=== PATIENT | female | born 1985 | race Two or more races ===

== ENCOUNTER 2016-08-23 16:09 | Emergency (ER) | payer OTHER ==
[~2016-08-23] VITALS: Ht 167.6 cm; Wt 59.0 kg
[~2016-08-23 16:09] MED LIST: IBUPROFEN600 MG ORAL
[2016-08-23 16:20] VITALS: BP 95/65
--- NOTE | 2016-08-23 16:34 | Emergency Room Report ---
History of Present Illness General Chief Complaint: Abdominal Pain Source: Patient Present Illness HPI Patient presents with complaints of fairly diffuse abdominal pain Started last night patient took a Cipro for consideration of possible UTI Pain to subside with Motrin last night however as the pain continued she was concerning came to the ER Pain is diffuse and started in the epigastric bilateral going down to the bilateral lower abdomen and suprapubic area Denies any diarrhea or vomiting denies any fevers or chills Allergies: Coded Allergies: NO KNOWN ALLERGIES (Unverified Allergy, Unknown, 03/23/15) Patient History Past Medical History: see triage record Pertinent Family History: none Last Menstrual Period: 07/31/16 Now: No Reviewed Nursing Documentation: PMH: Agreed, PSxH: Agreed Nursing Documentation-PMH Past Medical History: No Stated History Hx Hypertension: No Hx Diabetes: No Review of Systems All Other Systems: negative except mentioned in HPI Physical Exam Vital Signs Date Time Temp Pulse Resp B/P Pulse Ox O2 Delivery O2 Flow Rate FiO2 08/23/16 16:18 97.3 75 18 95/65 97 Room Air Sp02 EP Interpretation: reviewed, normal General Appearance: well appearing, no apparent distress Head: normocephalic, atraumatic Eyes: bilateral eye EOMI, bilateral eye PERRL ENT: hearing grossly normal, normal pharynx, TMs + canals normal, uvula midline Neck: full range of motion, supple, no meningismus, no bony tend Respiratory: lungs clear, normal breath sounds, no rhonchi, no respiratory distress, no retraction, no accessory muscle use Cardiovascular #1: normal peripheral pulses, regular rate, rhythm, no edema, no gallop, no JVD, no murmur Gastrointestinal: normal bowel sounds, non tender, soft, no mass, no organomegaly, non-distended, no guarding, no hernia, no pulsatile mass, no rebound Genitourinary: no CVA tenderness Musculoskeletal: normal inspection Neurologic: oriented x3, responsive, purchasing expeditor III-XII nml as tested, motor strength/ tone normal, sensory intact Psychiatric: mood/affect normal Skin: normal color, no rash, warm/dry, palpation normal Lymphatic: normal inspection, no adenopathy Medical Decision Making Diagnostic Impression: Primary Impression: Ovarian cyst Additional Impression: Abdominal pain ER Course With the patient's history and examination, multiple differentials considered, including but not limited to , ectopic , ovarian torsion, gastritis, cholecystitis, pancreatitis, appendicitis Given the patient's concerns CAT scan imaging was obtained It does show evidence of tendon a 4 cm cyst left adnexa Also 1 hemorrhagic Appendix was normal Patient has done well and otherwise has stable for close outpatient followup Labs Test 08/23/16 16:40 White Blood Count 7.8 K/UL (4.8-10.8) Red Blood Count 4.24 M/UL (4.20-5.40) Hemoglobin 12.5 G/DL (12.0-16.0) Hematocrit 37.1 % (37.0-47.0) Mean Corpuscular Volume 88 FL (80-99) Mean Corpuscular Hemoglobin 29.4 PG (27.0-31.0) Mean Corpuscular Hemoglobin Concent 33.6 G/DL (32.0-36.0) Red Cell Distribution Width 11.1 % (11.6-14.8) Platelet Count 160 K/UL (150-450) Mean Platelet Volume 13.4 FL (6.5-10.1) Neutrophils (%) (Auto) 53.4 % (45.0-75.0) Lymphocytes (%) (Auto) 40.0 % (20.0-45.0) Monocytes (%) (Auto) 4.3 % (1.0-10.0) Eosinophils (%) (Auto) 1.1 % (0.0-3.0) Basophils (%) (Auto) 1.2 % (0.0-2.0) Urine Color Yellow Urine Appearance Clear Urine pH 8 (4.5-8.0) Urine Specific [place] 1.010 (1.005-1.035) Urine Protein Negative (NEGATIVE) Urine Glucose (UA) Negative (NEGATIVE) Urine Ketones Negative (NEGATIVE) Urine Occult Blood Negative (NEGATIVE) Urine Nitrite Negative (NEGATIVE) Urine Bilirubin Negative (NEGATIVE) Urine Urobilinogen Normal MG/DL (0.0-1.0) Urine Leukocyte Esterase 3+ (NEGATIVE) Urine RBC 2-4 /HPF (0 - 2) Urine WBC 5-10 /HPF (0 - 2) Urine Squamous Epithelial Cells Few /LPF (NONE/OCC) Urine Bacteria Moderate /HPF (NONE) Urine HCG, Qualitative Negative Sodium Level 140 mEQ/L (135-145) Potassium Level 3.9 mEQ/L (3.4-4.9) Chloride Level 101 mEQ/L (98-107) Carbon Dioxide Level 25 mEQ/L (20-30) Anion Gap 14 (5-15) Blood Urea Nitrogen 13 mg/dL (7-23) Creatinine 0.8 mg/dL (0.5-0.9) Estimat Glomerular Filtration Rate > 60 mL/min (>60) Glucose Level 94 mg/dL (74-106) Calcium Level 8.5 mg/dL (8.6-10.2) Total Bilirubin 0.6 mg/dL (0.0-1.2) Aspartate Amino Transf (AST/SGOT) 16 U/L (5-40) Alanine Aminotransferase (ALT/SGPT) 13 U/L (3-33) Alkaline Phosphatase 41 U/L (35-104) Total Protein 6.7 g/dL (6.6-8.7) Albumin 4.1 g/dL (3.5-5.2) Globulin 2.6 g/dL Albumin/Globulin Ratio 1.5 (1.0-2.7) Lipase 41 U/L (< 60) CT/MRI/US Diagnostic Results CT/MRI/US Diagnostic Results : Impression CT abdomen pelvisImpression: 2 left ovarian cysts. Presence of internal high attenuation suggests these are hemorrhagic. Small amount free pelvic fluid. Relatively high attenuation of such also suggests hemorrhagic pelvic fluid related to leakage of the above No other acute abnormality Subcentimeter low-attenuation right lobe liver lesion, too small to characterize , most likely benign simple or bile hamartomas. No further followup needed Last Vital Signs Date Time Temp Pulse Resp B/P Pulse Ox O2 Delivery O2 Flow Rate FiO2 08/23/16 16:18 97.3 75 18 95/65 97 Room Air Status: improved Disposition: HOME, SELF-CARE Condition: Improved Scripts Nitrofurantoin Monohyd/M-Cryst* (MACROBID 100 MG*) 100 Mg Capsule 100 MG ORAL EVERY 12 HOURS for 5 Days, CAP Prov: KRISSY [email or web address] 08/23/16 Ibuprofen* (MOTRIN*) 600 Mg Tablet 600 MG ORAL Q8H Y for For Pain, #20 TAB 0 Refills Prov: KRISSY [email or web address] 08/23/16 Additional Instructions: Patient is provided with the discharge instructions notified to follow up with primary doctor in the next 2-3 days otherwise return to the er with any worsening symptoms. Please note that this report is being documented using DRAG[employer] technology. This can lead to erroneous entry secondary to incorrect interpretation by the dictating instrument. KRISSY GUERRERO D.O. Aug 23, 2016 16:34
[2016-08-23] MEDS ORDERED: Ketorolac 30mg Inj IV ONE (16:45)
[2016-08-23 17:10] LABS: ALANINE AMINOTRANSFERASE 13 U/L (3-33); ALBUMIN/GLOBULIN RATIO 1.5 (1.0-2.7); ANION GAP 14 (5-15); ASPARTATE AMINO TRANSFERASE 16 U/L (5-40); CALCIUM 8.5 mg/dL (8.6-10.2); CARBON DIOXIDE 25 mEQ/L (20-30); CHLORIDE 101 mEQ/L (98-107); CREATININE 0.8 mg/dL (0.5-0.9); GLOMERULAR FILTRATION RATE > 60 mL/min (>60); HEMOLYSIS 6; LIPASE 41 U/L (< 60); POTASSIUM 3.9 mEQ/L (3.4-4.9); SODIUM 140 mEQ/L (135-145); TOTAL PROTEIN 6.7 g/dL (6.6-8.7)
[2016-08-23 17:21] LABS: APPEARANCE,URINE CLEAR; KETONES,URINE NEGATIVE (NEGATIVE); LEUKOCYTE ESTERASE ,URINE 3+ (NEGATIVE); NITRITE,URINE NEGATIVE (NEGATIVE); PH,URINE 8 (4.5-8.0); PROTEIN,URINE NEGATIVE (NEGATIVE); UROBILINOGEN,URINE NORMAL MG/DL (0.0-1.0)
[2016-08-23 17:22] LABS: BASOPHILS % (AUTO) 1.2 % (0.0-2.0); EOSINOPHILS % (AUTO) 1.1 % (0.0-3.0); MEAN CORPUSCULAR HEMOGLOBIN 29.4 PG (27.0-31.0); MEAN CORPUSCULAR HGB CONC 33.6 G/DL (32.0-36.0); MEAN CORPUSCULAR VOLUME 88 FL (80-99); MEAN PLATELET VOLUME 13.4 FL (6.5-10.1); MONOCYTES % (AUTO) 4.3 % (1.0-10.0); NEUTROPHILS % (AUTO) 53.4 % (45.0-75.0); PLATELET COUNT 160 K/UL (150-450); RED BLOOD COUNT 4.24 M/UL (4.20-5.40); RED CELL DISTRIBUTION WIDTH 11.1 % (11.6-14.8); WHITE BLOOD COUNT 7.8 K/UL (4.8-10.8)
[2016-08-23 17:27] LABS: BACTERIA,URINE MODERATE /HPF; SQUAMOUS EPITHELIAL CELL,UR FEW /LPF (NONE/OCC)
[2016-08-23 19:02] VITALS: BP 102/67
[2016-08-23] MEDS ORDERED: IBUPROFEN600 MG ORAL (19:16)
[2016-08-23] MEDS ORDERED: NITROFURANTOIN100 M2 ORAL (19:34)
[2016-08-23 19:45] VITALS: BP 122/88
--- NOTE | 2016-08-24 11:16 | Diagnostic Imaging Report ---
Clinical Indication: Abdominal pain Technique: Patient given oral contrast. IV administration nonionic contrast. Venous phase spiral acquisition obtained through the abdomen and pelvis. Multiplanar reconstructions were generated. Total dose length product 780 mGycm. CTDIvol(s) 15 mGy Comparison: None Findings: The left ovary contains 2 large cysts, more superior of which measures 4 cm in diameter, and the more inferior measuring 4.2 cm in diameter. The inferior cyst contains internal high attenuation suggestive of internal hemorrhage. There may be some internal hemorrhage within the persists as well. There is trace free pelvic fluid which appears slightly high attenuation. The appendix is normal. Is no evidence of diverticulosis or diverticulitis. No small bowel distention. Distal esophagus, stomach, duodenum are unremarkable. No free or loculated intraperitoneal air or fluid. The liver demonstrates a subcentimeter low-attenuation border of segments 8 and 5 which is too small to characterize. No other focal hepatic abnormality. The gallbladder, bile ducts, pancreas, spleen, adrenals, kidneys are unremarkable. There is an accessory splenule. No retroperitoneal mass or adenopathy. No pelvic adenopathy. Bladder is unremarkable. Uterus, right ovary are unremarkable. The lung bases are clear. The bones are unremarkable. Impression: 2 left ovarian cysts. Presence of internal high attenuation suggests these are hemorrhagic. Small amount free pelvic fluid. Relatively high attenuation of such also suggests hemorrhagic pelvic fluid related to leakage of the above No other acute abnormality Subcentimeter low-attenuation right lobe liver lesion, too small to characterize, most likely benign simple or bile hamartomas. No further followup needed This agrees with the preliminary interpretation provided overnight by Dr. Pate The CT scanner at [facility] is accredited by the [employer] and the scans are performed using protocols designed to limit radiation exposure to as low as reasonably achievable to attain images of sufficient resolution adequate for diagnostic evaluation.
== END 2016-08-23 19:45 | disposition home or self-care (01) ==
LOC: EMR 17:00
DX: R10.84 Generalized abdominal pain (principal); N83.202 Unspecified ovarian cyst, left side; K76.9 Liver disease, unspecified
CPT/HCPCS: 36415; 74177; 80053; 81003; 81025; 83690; 85025; 87086; 96374; 96375; 99284; J1885; J7040; Q9967

== ENCOUNTER 2017-09-15 19:25 | Emergency (ER) | payer OTHER ==
[~2017-09-15] VITALS: Ht 167.6 cm; Wt 59.0 kg
[~2017-09-15 19:25] MED LIST changes: +NITROFURANTOIN100 M2 ORAL
[2017-09-15 19:45] VITALS: BP 91/54
[2017-09-15] MEDS ORDERED: IBUPROFEN600 MG ORAL (19:47)
[2017-09-15] MEDS ORDERED: ROBAXIN-750750 MG PO (19:47)
[2017-09-15 20:14] VITALS: BP 91/54
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
== END 2017-09-15 20:14 | disposition home or self-care (01) ==
LOC: EMR 19:25
DX: M62.838 Other muscle spasm (principal); M54.2 Cervicalgia; R51 Headache; V43.52XA Car driver injured in collision with other type car in traffic accident, initial encounter; Y92.414 Local residential or business street as the place of occurrence of the external cause
CPT/HCPCS: 99284

== ENCOUNTER 2020-02-09 21:39 | Emergency (ER) | payer BC, OTHER ==
[~2020-02-09] VITALS: Ht 167.6 cm; Wt 59.0 kg
[~2020-02-09 21:39] MED LIST changes: +ROBAXIN-750750 MG PO
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
[2020-02-09 21:48] VITALS: BP 100/70
[2020-02-09] MEDS ORDERED: IBUPROFEN600 M1 ORAL (22:05)
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
--- NOTE | 2020-02-09 22:08 | NUR ---
ED Nurse Note: offered ibuprofen bt pt refused. pt did not want to take any analgesic at this time. ERMD aware.
--- NOTE | 2020-02-09 22:10 | NUR ---
ED Nurse Note: PT taken taken to CT via W/C
--- NOTE | 2020-02-09 22:20 | NUR ---
ED Nurse Note: back from ct
[2020-02-09 22:27] VITALS: BP 102/66
--- NOTE | 2020-02-09 22:27 | NUR ---
ER DISCHARGE NOTE: Patient is cleared to be discharged per ERMD, pt is aox4, on room air, with stable vital signs. pt was given dc and prescription instructions, pt was able to verbalize understanding, pt id band removed without complications. pt is able to ambulate with steady gait. pt took all belongings.
--- NOTE | 2020-02-09 22:36 | Diagnostic Imaging Report ---
EXAM: CT Head Without Intravenous Contrast CLINICAL HISTORY: TRAUMA TECHNIQUE: Axial computed tomography images of the head/brain without intravenous contrast. CTDI is 53.4 mGy and DLP is 992.1 mGy-cm. One or more of the following dose reduction techniques were used: automated exposure control, adjustment of the mA and/or kV according to patient size, use of iterative reconstruction technique. COMPARISON: CT head dated 04/08/2015 FINDINGS: Brain: Unremarkable. No hemorrhage. No significant white matter disease. No edema. Ventricles: Unremarkable. No ventriculomegaly. Bones/joints: Unremarkable. No acute fracture. Soft tissues: Unremarkable. Sinuses: Unremarkable as visualized. No acute sinusitis. Mastoid air cells: Unremarkable as visualized. No mastoid effusion. IMPRESSION: No acute intracranial abnormality.
== END 2020-02-09 22:27 | disposition home or self-care (01) ==
LOC: EMR 22:10
DX: S09.90XA Unspecified injury of head, initial encounter (principal); W22.8XXA Striking against or struck by other objects, initial encounter; Y92.9 Unspecified place or not applicable
CPT/HCPCS: 70450; 99284